=== PATIENT | male | born 1985 | race Caucasian/White ===

== ENCOUNTER 2017-04-02 10:48 | Outpatient (CLI) | payer OTHER ==
--- NOTE | 2017-04-02 12:08 | Ultrasound Report ---
ULTRASOUND SOFT TISSUE HEAD AND NECK INDICATION: Malignant neoplasm of thyroid gland. Total thyroidectomy in August 2013. COMPARISON: None similar at this institution. FINDINGS: Sonographic evaluation of the neck/thyroid region demonstrates no suspicious abnormal masses. No thyroid tissue visualized. CONCLUSION: No sonographic abnormality with surgically absent thyroid, as described. Thank you for the opportunity to participate in this patient's care.
== END 2017-04-02 10:49 | disposition home or self-care (01) ==
LOC: US 10:48
DX: C73 Malignant neoplasm of thyroid gland (principal); I10 Essential (primary) hypertension; E89.0 Postprocedural hypothyroidism
CPT/HCPCS: 76536